=== PATIENT | female | born 1990 | race Asian ===

== ENCOUNTER 2024-11-12 03:28 | Inpatient (IN) ==
[2024-11-12] MEDS ORDERED: OXYTOCIN 10 UNIT/ML VIAL ONE (03:47)
[2024-11-12] MEDS ORDERED: TRANEXAMIC ACID IN NACL 1,000 MG/100 ML BAG IV ONE (03:47)
[2024-11-12] MEDS ORDERED: LABETALOL 20 MG/4 ML SYRINGE IVP PRN ×3 (04:24)
[2024-11-12] MEDS ORDERED: CARBOPROST TROMETHAMINE 250 MCG/ML VIAL IM PRN (04:24)
[2024-11-12] MEDS ORDERED: TERBUTALINE 1 MG/ML VIAL SUBQ PRN (04:24)
[2024-11-12] MEDS ORDERED: fentaNYL 100 MCG/2 ML VIAL IVP PRN (04:24)
[2024-11-12] MEDS ORDERED: OXYTOCIN/SODIUM CHLORIDE 500 ML IV PRN ×2 (04:24→05:09)
[2024-11-12] MEDS ORDERED: hydrALAZINE INJ 20 MG/ML VIAL IVP PRN (04:24)
[2024-11-12] MEDS ORDERED: SODIUM CHLORIDE FLUSH 0.9% 10 ML SYRINGE IVP PRN (04:24)
[2024-11-12] MEDS ORDERED: TRANEXAMIC ACID IN NACL 1,000 MG/100 ML BAG IV PRN (04:24)
[2024-11-12] MEDS ORDERED: LACTATED RINGERS 1,000 ML IV PRN (04:24)
[2024-11-12] MEDS ORDERED: CARBOPROST TROMETHAMINE 250 MCG/ML VIAL IM ONE (04:31)
[2024-11-12] MEDS ORDERED: METHYLERGONOVINE 0.2 MG/ML VIAL ONE (04:31)
[2024-11-12] MEDS ORDERED: LIDOCAINE 1% 2 ML VIAL ONE (04:35)
[2024-11-12] MEDS ORDERED: SODIUM CHLORIDE FLUSH 0.9% 10 ML SYRINGE IVP SCH (05:00)
[2024-11-12] MEDS ORDERED: SIMETHICONE CHEW 80 MG TABLET PO PRN (05:09)
--- NOTE | 2024-11-12 05:17 | DELIVERY NOTE ---
Delivery Note Delivery Comments (Free Text/Narrative) Delivery Comments (Free Text/Narrative): Labor: This 34yo @ 37.5 wks gestation by 9.6wks U/S presented to [facility] in active labor. Cervix was c/c/+1 and vertex at 0341. SROM occurred at 0030 at home prior to arrival and was noted to be a moderate amount of clear fluid. FHR demonstrated Category I pattern throughout labor. Precipitous labor course. : Normal SVB of viable male on 11/12/2024 @ 0405. No nucal cord. The was placed on maternal abdomen, stimulated, dried, and placed skin to skin. 's were 9/9 at 1 and 5 min respectively. Pitocin administered via IV for hemostasis. The umbilical cord was allowed to stop pulsating at which time it was doubly clamped by CNM and cut by FOB. Cord blood was obtained. 3VC. Fundal massage and gentle cord traction applied for active management of the third stage. Placenta delivered spontaneously and intact at 0424. QBL 678mL. Fourth stage: Uterine fundus firm initially followed by slightly increased bleeding. IM pitocin administered followed by IM methergine per protocol. Uterin e fundus firm with fundal massage and there is no excessive bleeding. The perineum, vagina, and cervix were inspected and found to have a 2nd degree perineal laceration which was repaired using a 3-[address]-1 needle, in standard fashion and under sterile conditions. Vaginal examination following repair was performed. Tissues well approximated. initiated. Family bonding well. Both mother and baby were left in stable condition.
--- NOTE | 2024-11-12 05:24 | HISTORY & PHYSICAL EXAMINATION ---
Admit History Smoking Status: Never smoker Meds/Allgy Home Medications Ambulatory Orders Medication Instructions Recorded Confirmed vits no.126-ferrous fum tab PO QDAY 04/11/24 11/11/24 28 mg iron-folic acid 800 mcg tablet (Classic ) hydroxyzine HCl 10 mg tablet 10 mg PO TID anxiety #30 tabs 05/03/24 11/11/24 Allergies Allergies Allergy/AdvReac Type Severity Reaction Status Date / Time gluten AdvReac GI Upset Verified 11/11/24 09:34 Milk Containing Products AdvReac GI upset Verified 11/11/24 09:34 (Dairy) PFSH Active Problems All Active Problems (Updated 11/12/24 @ 00:01 by ) Normal in second trimester (Acute) Anemia during (Acute) Encounter for other specified screening (Acute) Encounter for supervision of normal , unspecified, first trimester (Acute) Positive test (Acute) Medical History Medical History (Updated 11/12/24 @ 00:01 by ) Elective 2010 at 13 weeks Surgical History Surgical History (Updated 05/02/24 @ 11:18 by Liudmila Moses MA) H/O dilation and curettage Family History Family History (Updated 04/11/24 @ 15:27 by Sparkle Hough RN) Other Adopted Social History Social History (Updated 10/28/24 @ 09:14 by Clara Grey MA) Smoking Status: Never smoker Do you dip or chew tobacco?: No Do you vape?: No Living arrangement: At home Living Condition: With spouse/s.o. Level: Independent Do you feel safe in your home environment?: Yes History of physical, verbal, emotional, or financial abuse?: No ETOH Use: None Substance Use: denies use Are you sexually active?: Yes Plan for Labor Plan For Labor I expect patient to be DC'd or transferred within 96 hours.: Yes Plan for Labor: Fern is a 34yo @ 37.5wks gestation who presents to [facility] in active labor. SROM occurred prior to her arrival at home on 11/12/2024 @ 0030 and was noted to be a moderate amount of clear fluid. She states initially following rupture of membranes she did not have cramping but shortly after at approximately 0130 she started to experience cramping that rapidly increased in both frequency and intensity. Upon arrival to [facility] she was noted to c/c/+1 with spontaneous urge to push. She has been a patient of [facility] for the duration of her pr egnancy which has remained uncomplicated. Of note, she is GBS unknown as this was just collected at her appt this morning. She will be admitted to [facility] for imminent delivery and expectant management of labor. She is supported by her Benedict. In the event of an emergency, ACCEPTS the administration of blood products : EAB D&C 2010 G2: current Medical Hx: anxiety, anemia Surgical Hx: D&C 2010 (EAB) Social Hx: Monogamous with male partner Russell. Stopped drinking alcohol due to . Denies current use of tobacco, marijuana or other recreational drugs. Reports that she is safe in current relationship. Family Hx: Unknown-adopted from [facility] at age 7. Allergies: NKDA Medications: PNV FOB: Russell Villar LMP:02/22/2024 PRABHJOT by LMP: 11/28/2024 U/S: @ [place].1wks c/w LMP dating (PRABHJOT by U/S 11/29/2024) Final PRABHJOT: 11/28/2024 Pre- weight: 120 BMI: 22.0 Blood type: B positive Antibody screen: negative CBC: [id number] HCT28.9 HGB 9.5 Rubella: immune VZV: immune HBsAg: NR HepC: NR RPR/AB-EIA: NR HIV: NR Flu: declines COVID: x 1 - declines booster PAP: 07/2023-normal GC/CT: neg HSV: denies in self and partner Genetic Testing:NIPT([employer]) Negative FAS: 08/08/2024 Placenta: anterior Cord: 3VC NEHEMIAS: 12.7 EFW: 681g 55.3%tile 50gm GCT: ordered, declined. Profiled x2 weeks. - Patient declined one-hour glucose tolerance test - Completed glucose profile from August 11 to August 25 - Results show excellent glucose control: - Fasting blood glucose: 79 mg/dL - 95mg/dL, mostly in the 80's - Two-hour postprandial values: 81 mg/dL and 106 mg/dL (within goal range) TDAP: Given 09/01/2024 Breast Pump: has GBS: 11/11/2024 Physical exam: Normocephalic, atraumatic Normal respiratory effort Abdomen gravid, soft, nontender. EFW 3300g FHR baseline 120, moderate variability, No accels, no decels Contractions palpate strong every 2-3 mintues with soft resting tone SVE c/c/+1 and vertex Vaginal leakage of clear fluid Bialteral LE's trace edema Mood is good. Assessment: 34yo @ 37.5wks gestation by LMP c/w 9wk U/S Active labor GBS unknown FHR Category I Plan: Admit to [facility] for expectant management and imminent delivery. Intermittent heart rate auscultation. Facilitate spontaneous, physiologic . Anticipate .
[2024-11-12] MEDS: OXYTOCIN 10 UNIT/ML VIAL IM PRN (07:21)
[2024-11-12] MEDS: METHYLERGONOVINE 0.2 MG/ML VIAL IM PRN (07:23)
[2024-11-12] MEDS: HYDROCORTISONE 1% CREAM 28 GM TUBE TOP PRN (08:37)
[2024-11-12] MEDS: DOCUSATE SODIUM 100 MG CAPSULE PO SCH (08:38)
[2024-11-12] MEDS: WITCH HAZEL/GLYCERIN 1 PAD TOP PRN (08:38)
[2024-11-12] MEDS: ACETAMINOPHEN 500 MG TABLET PO PRN (08:38)
[2024-11-12] MEDS: IBUPROFEN 800 MG TABLET PO PRN (08:39)
[2024-11-12 10:16] VITALS: O2SAT 100
--- NOTE | 2024-11-12 10:59 | PROVIDER PROGRESS NOTE ---
Subjective Subjective Subjective: S: Bonding well with baby. without difficulty. Bleeding decreased and is light. Pain is well controlled with oral medications. She is urinating without difficulty. Has not yet had BM. is supportive at the bedside. O: Heart RRR w/o M/G/R, lungs CTAB, abdomen soft and nontender with fundus firm at U, perineum intact, light lochia rubra, bilateral LE's trace edema A: 34yo -->P1 PPD#1 s/p TSVD viable male Normal recovery P: Continue routine care and medications. Evaluate for discharge home tomorrow Current Medications Current Medications Current Medications: Current Medications Generic Name Dose Route Start Last Admin Trade Name Freq PRN Reason Stop Dose Admin Acetaminophen 1,000 mg 11/12/24 05:11/12/24 08:38 Acetaminophen 500 Mg Tablet PO 1,000 mg Q8HR PRN Administration Mild Pain or Fever>38C(100.4F) Carboprost Tromethamine 250 mcg 11/12/24 04:24 Carboprost Tromethamine 250 Mcg/Ml Vial IM .ONCE PRN Hemorrhage Docusate Sodium 100 mg 11/12/24 09:00 11/12/24 08:38 Docusate Sodium 100 Mg Capsule PO 100 mg BID ELGIN Administration Hydralazine HCl 5 - 10 mg 11/12/24 04:24 Hydralazine Inj 20 Mg/Ml Vial IVP Q20M PRN SBP> or= 160 OR DBP> or= 110 Protocol Hydrocortisone 1 applic 11/12/24 05:09 11/12/24 08:37 Hydrocortisone 1% Cream 28 Gm Tube TOP 1 tube QID PRN Administration PERINEAL REPAIR Ibuprofen 800 mg 11/12/24 05:09 11/12/24 08:39 Ibuprofen 800 Mg Tablet PO 800 mg Q8HR PRN Administration Moderate Pain (Level 4-6) Labetalol HCl 20 - 80 mg 11/12/24 04:24 Labetalol 20 Mg/4 Ml Syringe IVP Q10M PRN SBP> or= 160 OR DBP> or= 110 Protocol Labetalol HCl 20 mg 11/12/24 04:24 Labetalol 20 Mg/4 Ml Syringe IVP .ONCE PRN SBP> or= 160 OR DBP> or= 110 Protocol Labetalol HCl 20 - 40 mg 11/12/24 04:24 Labetalol 20 Mg/4 Ml Syringe IVP Q10M PRN SBP> or= 160 OR DBP> or= 110 Protocol Lidocaine HCl 20 ml 11/12/24 04:24 11/12/24 04:40 Lidocaine 1% 20 Ml Mdv ID 11/15/24 04:24 20 ml .ONCE PRN Administration PERINEAL REPAIR Misoprostol 600 mcg 11/12/24 04:24 Misoprostol 200 Mcg Tablet BC .ONCE PRN Hemorrhage Misoprostol 800 mcg 11/12/24 04:24 Misoprostol 200 Mcg Tablet IL .ONCE PRN Hemorrhage Nifedipine 10 - 20 mg 11/12/24 04:24 Nifedipine 10 Mg Capsule PO Q20M PRN SBP> or= 160 OR DBP> or= 110 Protocol Simethicone 80 mg 11/12/24 05:09 Simethicone Chew 80 Mg Tablet PO TID PRN Gas Witch Nancy/Glycerin 1 pad 11/12/24 05:09 11/12/24 08:38 Witch Nancy/Glycerin 1 Pad TOP 1 pad PRN PRN Administration PERINEAL REPAIR Objective Vital Signs/Intake & Output Vital Signs: Vital Signs x48h Temp Pulse Resp BP Pulse Ox 11/12/24 07:30 98.1 F 88 16 93/61 100 Intake & Output: Intake & Output 11/09/24 11/10/24 11/11/24 11/12/24 23:59 23:59 23:59 23:59 Intake Total 250 / 250 Output Total 1100 / 1100 Balance -850 / -850 Weight (kg) 153 lb
--- NOTE | 2024-11-13 07:04 | Discharge Summary ---
Discharge Summary Admit Date: 11/12/24 Discharge Date: 11/13/24 Discharging Provider: SADAF Hoyt History of Present Illness: Date of Admission: 11/12/2024 Date of Discharge: 11/13/2024 Diagnosis on admission: 34yo @ 37.5wks gestation by LMP c/w 9wk U/S Active labor GBS unknown FHR Category I Diagnosis on Discharge 34 yo s/p precipitous labor and delivery of viable male infant Unremarkable course Physical exam: Normocephalic, atraumatic no extra work of breathing Normal uterine involution, FF below umbilicus scant rubra bleeding minimal perineal discomfort. Bilateral LE's no edema Mood is good. Brief History: This 34yo @ 37.5 wks gestation by 9.6wks U/S presented to [facility] in active labor. Cervix was c/c/+1 and vertex at 0341. SROM occurred at 0030 at home prior to arrival and was noted to be a moderate amount of clear fluid. FHR demonstrated Category I pattern throughout labor. Precipitous labor course.She has been a patient of [facility] the entirety of her which has overall remained uncomplicated. : Normal SVB of viable male infant on 11/12/2024 @ 0405. No nuchal cord. 's were 9/9 at 1 and 5 min respectively. Pitocin administered via IV for hemostasis. 3VC. Fundal massage and gentle cord traction applied for active management of the third stage. Placenta delivered spontaneously and intact, QBL 678mL. Fourth stage: Uterine fundus firm initially followed by slightly increased bleeding. IM pitocin administered followed by IM methergine per protocol. Uterine fundus firm with fundal massage and there is no excessive bleeding. The perineum, vagina, and cervix were inspected and found to have a 2nd degree perineal laceration which was repaired using a 3-[address]-1 needle, in standard fashion and under sterile conditions She has been doing well in her course. She is ambulating and tolerating a regular diet. She is urinating without difficulty and her lochia is normal. Her pain is well controlled without narcotic management. She will be discharged to home today on day 1 and encouraged IBU, tylenol and stool softeners PRN. She intends to follow up with [facility] on 11/21/2024 by telehealth. She has been given precautions to call if she has any new or worsening sx such as fevers, chills, abdominal pain, increasing bleeding, or foul smelling vaginal lochia. preeclamptic precautions reviewed as well. . ALLERGIES Allergies Allergy/AdvReac Type Severity Reaction Status Date / Time gluten AdvReac GI Upset Verified 11/11/24 09:34 Milk Containing Products AdvReac GI upset Verified 11/11/24 09:34 (Dairy) MEDICATIONS Ambulatory Orders Medication Instructions Recorded Confirmed vits no.126-ferrous fum 1 tab PO DAILY 11/13/24 28 mg iron-folic acid 800 mcg tablet (Classic ) hydroxyzine HCl 10 mg tablet 10 mg PO TID anxiety #30 tabs 05/03/24 11/11/24 PHYSICAL EXAM AT DISCHARGE Vital Signs: Vital Signs x48h Temp Pulse Resp BP Pulse Ox 11/13/24 12:38 37.2 C 88 18 92/50 L 100 11/13/24 08:00 37.1 C 94 18 108/65 11/13/24 06:10 36.8 C 69 15 98/53 L Discharge Plan Discharge Patient Disposition: Home, Self Care Medically Cleared Date:: 11/13/24 Prescriptions: Continued Classic 28 mg iron- 800 mcg tablet 1 tab PO DAILY hydroxyzine HCl 10 mg tablet 10 mg PO TID Qty: 30 0RF Activity Restrictions: No Restrictions Diet: Regular Print Language: [place] Verdean Patient Instructions: After a Vaginal Vitals documented within 30 minutes of discharge?: Yes
[2024-11-13 12:43] VITALS: TEMP 99
[2024-11-13 14:57] VITALS: BP 110/70
--- NOTE | 2024-11-13 15:25 | Labor Flowsheet ---
Labor Flowsheet Datetime Report Generated by CPN: 11/13/2024 15:25 Datetime: 11/13/2024 14:57 VITAL SIGNS NBP Sys/Sveta/Mean (mmHg): 110 : 70 : 78 Pulse: 91 Datetime: 11/12/2024 07:31 Membranes Ruptured Date/Time: 11/12/2024 00:30 Membranes Rupture Method: Spontaneous Amniotic Fluid Color: Clear Datetime: 11/12/2024 04:33 MEDICATIONS Medication Comments: Methergine IM 0.2 mg Datetime: 11/12/2024 04:06 PATIENT CARE Patient Care Comments: pt moved from floor to bed Datetime: 11/12/2024 04:05 STAGE 2 Stage 2 Comments: delivery of live baby boy Datetime: 11/12/2024 03:54 COMMUNICATION Communication Comments: CNM A. Letty @bedside Datetime: 11/12/2024 03:48 ASSESSMENT A Comments: FHT in the 120s Datetime: 11/12/2024 03:41 VAGINAL EXAM Dilatation (cm): 10.0 Effacement (%): 100 Station: 1 Exam by: Martin Scales RN Vaginal Exam Comments: pt involuntarily pushing with ctx
== END 2024-11-13 15:15 | disposition home or self-care (01) | DRG 807 ==
LOC: FBP 03:28
PROVIDERS: ADMIT Nurse Practitioner Obstetrics & Gynecology; ATTEND Nurse Practitioner Obstetrics & Gynecology